=== PATIENT | male | born 1950 | race Two or more races ===

== ENCOUNTER 2023-04-22 09:00 | Outpatient (CLI) | payer OTHER | END 2023-04-22 09:01 | disposition home or self-care (01) | LOC: NUCLEAR 09:00 | DX: C34.32 Malignant neoplasm of lower lobe, left bronchus or lung (principal) | CPT/HCPCS: 78815; A9552 ==

== ENCOUNTER → 2024-03-15 08:35 | Outpatient (CLI) | payer OTHER | END | disposition home or self-care (01) | LOC: NUCLEAR 08:00 | DX: C34.32 Malignant neoplasm of lower lobe, left bronchus or lung (principal) | CPT/HCPCS: 78815; A9552 ==